=== PATIENT | male | born 1950 | race Caucasian/White ===

== ENCOUNTER → 2019-04-23 23:05 | Outpatient (CLI) | payer OTHER, MEDICARE, SELFPAY ==
[2019-04-23 16:56] VITALS: BMI 25.0
[2019-04-23 23:11] LABS: Absolute Lymphocyte Count 1.55 X10^3/uL (0.83-4.51); Absolute Neutrophil Count 3.9 X10^3/uL (2.0-7.7); Basophil# 0.09 X10^3/uL; Basophil% 1.4 % (0-1); Eosinophil# 0.19 X10^3/uL; Hematocrit 48.5 % (40-54); Hemoglobin 16.3 g/dL (13.0-16.5); Lymphocyte # 1.55 X10^3/ul (4.0); Lymphocyte % 24.4 % (19-41); Mean Corp Hgb Conc 33.6 g/dL (32-36); Mean Corpuscular Hgb 30.7 pg (27.0-32.0); Mean Corpuscular Volume 91.3 fL (80-94); Mean Platelet Vol. 10.5 fl (6.2-12.0); Monocyte# 0.58 X10^3/uL; Monocyte% 9.1 % (0-10); NRBC Flagged by Analyzer 0 % (0-5); Neutrophil # 3.93 X10^3/uL (2.7-7.7); Neutrophil % 61.9 % (47-70); Platelet Count 160 K/mm3 (150-450); RBC Distribution Width CV 12.4 % (11.6-14.6); RBC Distribution Width SD 41.5 fl (35.1-43.9); Red Blood Count 5.31 M/mm3 (4.6-6.2); White Blood Count 6.4 K/mm3 (4.4-11.0)
[2019-04-23 23:25] LABS: ALB/GLOB Ratio 1.3 RATIO (0.9-2.4); AST(SGOT) 26 U/L (15-37); Alanine Aminotransfer ALT/SGPT 32 U/L (16-61); Albumin, Serum 4.1 g/dL (3.2-5.0); Alkaline Phosphatase 61 U/L (45-117); Anion Gap 5 (5-15); BUN 15 mg/dL (7-18); BUN/Creat Ratio 13.5 RATIO (10-20); Calcium,Total 8.8 mg/dL (8.5-10.1); Chloride 106 mmol/L (98-107); Cholesterol 225 mg/dL (200); Creatinine, Serum 1.11 mg/dL (0.70-1.30); EST Glomerular Filtration Rate 70 mL/min (>60); Est Glom Filt Rate - Afr Amer 85 mL/min (>60); Globulin 3.1 g/dL (2.2-4.2); Glucose 119 mg/dL (74-106); High Density Lipoprotein 68 mg/dL; PSA,Total - Annual Screen 2.04 ng/mL (0.00-4.00); Potassium 4.7 mmol/L (3.5-5.1); Protein, Total 7.2 g/dL (6.4-8.2); Sodium Level 140 mmol/L (136-145); Triglycerides 289 mg/dL; Very Low Density Lipoprotein 58 mg/dL (5-40)
== END ==
PROVIDERS: Referring Provider Nurse Practitioner; Visit Provider Nurse Practitioner
DX: Z12.5 Encounter for screening for malignant neoplasm of prostate (principal); E78.00 Pure hypercholesterolemia, unspecified; N40.0 Benign prostatic hyperplasia without lower urinary tract symptoms
CPT/HCPCS: 80053; 80061; 84153; 85025; G0103

== ENCOUNTER → 2021-04-27 21:28 | Outpatient (CLI) | payer MEDICARE, SELFPAY ==
[2021-04-27 21:37] LABS: Absolute Lymphocyte Count 1.29 X10^3/uL (0.83-4.51); Absolute Neutrophil Count 2.2 X10^3/uL (2.0-7.7); Basophil# 0.07 X10^3/uL; Basophil% 1.7 % (0-1); Eosinophil# 0.15 X10^3/uL; Eosinophils% 3.6 % (0-5); Hematocrit 45.3 % (40-54); Hemoglobin 15.4 g/dL (13.0-16.5); Lymphocyte # 1.29 X10^3/ul (0.83-4.51); Lymphocyte % 31.4 % (19-41); Mean Corpuscular Volume 91.1 fL (80-94); Mean Platelet Vol. 10.2 fl (6.2-12.0); Monocyte# 0.42 X10^3/uL; Monocyte% 10.2 % (0-10); NRBC Flagged by Analyzer 0 % (0-5); Neutrophil # 2.17 X10^3/uL (2.7-7.7); Neutrophil % 52.9 % (47-70); Platelet Count 141 K/mm3 (150-450); RBC Distribution Width CV 12.3 % (11.6-14.6); RBC Distribution Width SD 40.7 fl (35.1-43.9); Red Blood Count 4.97 M/mm3 (4.6-6.2); White Blood Count 4.1 K/mm3 (4.4-11.0)
[2021-04-27 21:54] LABS: ALB/GLOB Ratio 1.2 RATIO (0.9-2.4); AST(SGOT) 24 U/L (15-37); Alanine Aminotransfer ALT/SGPT 25 U/L (16-61); Albumin, Serum 3.8 g/dL (3.2-5.0); Alkaline Phosphatase 59 U/L (45-117); Anion Gap 4 (5-15); BUN 15 mg/dL (7-18); BUN/Creat Ratio 14.2 RATIO (10-20); Chloride 107 mmol/L (98-107); Cholesterol 219 mg/dL (200); Creatinine, Serum 1.06 mg/dL (0.70-1.30); EST Glomerular Filtration Rate 74 mL/min (>60); Est Glom Filt Rate - Afr Amer 89 mL/min (>60); Globulin 3.2 g/dL (2.2-4.2); Glucose 89 mg/dL (74-106); High Density Lipoprotein 78 mg/dL; PSA,Total - Annual Screen 2.79 ng/mL (0.00-4.00); Potassium 3.9 mmol/L (3.5-5.1); Sodium Level 139 mmol/L (136-145); Triglycerides 81 mg/dL; Very Low Density Lipoprotein 16 mg/dL (5-40)
== END ==
PROVIDERS: PCP Nurse Practitioner; Referring Provider Nurse Practitioner; Visit Provider Nurse Practitioner
DX: E78.00 Pure hypercholesterolemia, unspecified (principal); J45.41 Moderate persistent asthma with (acute) exacerbation; N40.0 Benign prostatic hyperplasia without lower urinary tract symptoms
CPT/HCPCS: 80053; 80061; 84153; 85025; G0103

== ENCOUNTER → 2022-06-07 | Outpatient (CLI) | payer MEDICARE, SELFPAY ==
--- NOTE | 2022-06-07 08:00 | RAD_ITS ---
INDICATION: DYSPHAGIA EXAMINATION/TECHNIQUE: Barium thick and thin oral contrast , barium pill, and gas bubbles were administered to the patient. Total Fluoroscopic Time: 35 seconds AND number of Fluoroscopic Images: 11 COMPARISON: None. FINDINGS: There is a small to moderate-sized diverticulum in the midline upper esophagus that fills with contrast. There is contrast retained within the bilateral vallecula and oropharynx as patient swallows. No definitive aspiration. Normal motility. No masses or strictures are identified. There is a small hiatal hernia. There is some mucosal irregularity in the distal esophagus likely related to chronic reflux. Mild reflux. RAD/Esophagus Dual Contrast IMPRESSION: 1. Small hiatal hernia and mild reflux. 2. Some mucosal irregularity in the distal esophagus likely related to chronic reflux. 3. Small to moderate-sized Zenker''s diverticulum. 4. The patient retains contrast in the vallecula and oropharynx. A speech swallow study may be of benefit for further assessment. Electronically Signed: Lauro Sanchez, at 14:39 EST ,
== END | disposition home or self-care (01) ==
LOC: RAD 07:41
PROVIDERS: PCP Nurse Practitioner; Referring Provider Otolaryngology; Visit Provider Otolaryngology
DX: K44.9 Diaphragmatic hernia without obstruction or gangrene (principal); K22.5 Diverticulum of esophagus, acquired; R13.10 Dysphagia, unspecified
CPT/HCPCS: 74221

== ENCOUNTER → 2022-07-01 | Outpatient (CLI) | payer MEDICARE, SELFPAY | END | disposition home or self-care (01) | PROVIDERS: PCP Nurse Practitioner | DX: Z01.818 Encounter for other preprocedural examination (principal); K22.5 Diverticulum of esophagus, acquired | CPT/HCPCS: 87635; C9803; U0003; U0005 ==

== ENCOUNTER → 2023-06-04 | Outpatient (CLI) | payer MEDICARE, SELFPAY ==
--- OUTSIDE RECORDS SUMMARY | 2023-06-04 22:42 | XMS RPT_ITS | CCD ---
Author Name Unknown Address [address] [place] [id number] Organization [facility] Care Team Providers Care Hr Associate Name Role Phone Naomi Yoder Unavailable Nahomy, Dr. Ralph Higuera Attending U kassandra Yoder, Ms. Naomi Polanco Primary Care Unavailab Munguia, Dr. Ralph Higuera Attending U kassandra Yoder, Ms. Naomi Polanco Primary Care Unavailab Munguia, Dr. Ralph Higuera Attending U kassandra Yoder, Ms. Naomi Polanco Primary Care Unavailab jeb Corea, Dr. Ralph Higuera Attending U kassandra Corea, Dr. Ralph Higuera Admitting U kassandra Yoder, Ms. Naomi Polanco Primary Care Unavailab le UNKNOWN, PCP Referring Jose Yoder RETAIL SOLAR ADVISOR.Naomi GILLILAND Primary Care Provide r FIDENCIO DAVENPORT Attending Unavailable NAOMI YODER Primary Care Unavailable JESUS CHAN Attending Unavailable NAOMI YODER Primary Care Unavailable FIDENCIO DAVENPORT Attending Unavailable NAOMI YODER Primary Care Unavailable DAJUAN GARZON Attending Unavailable NAOMI YODER Primary Care Unavailable Medications Current Medications Medication Drug Class(es) Dates Sig (Normalized) Sig (Original) cephalexin 500 mg oral capsule (2 sources) Cephalosporin Antibacterial Start: 08-18-2022 End: 08-25-2022 take 1 capsule by mouth four times daily cephALEXin (KEFLEX) 500 mg capsule Take 1 capsule by mouth four times daily for 7 days. 28 capsule 0 08/18/2022 08/25/2022 Active Completed/Discontinued Medications Medication Drug Class(es) Dates Sig (Normalized) Sig (Original) Albuterol (4 sources) beta2-Adrenergic Agonist ALBUTER OL SULFATE (PROAIR HFA INHALATION) Inhale as instructed. 0 Active Problems Active Problems Problem Classification Problem Date Documented Da te Episodic/Chronic Asthma (5 sources) Unspecified asthma, uncomplicated; Translations: [Mild intermittent asthma] Onset: 09-29-2015 09-29-2015 Chronic Disorders of lipid metabolism (4 sources) Hyperlipidemia; Translations: [Hyperlipidemia, unspecified] Onset: 09-29-2015 09-29-2015 Chronic E Codes: Machinery (4 sources) Injury due to machinery; Translations: [Contact with powered [employer] and forming machines, initial encounter] Onset: 09-23-2022 Episodic Esophageal disorders (1 source) Gastro-esophageal reflux disease without esophagitis; Translations: [Gastro-esophageal reflux disease without esophagitis] Onset: 07-03-2022 Chronic Esophageal disorders (6 sources) Zenker's diverticulum; Translations: [Diverticulum of esophagus, acquired] Onset: 07-02-2022 Episodic Essential hypertension (4 sources) Hypertensive disorder; Translations: [Essential (primary) hypertension] Onset: 09-29-2015 09-29-2015 Chronic Hyperplasia of prostate (1 source) Benign prostatic hyperplasia without lower urinary tract symptoms; Translations: [Benign prostatic hyperplasia without lower urinry tract symp] Onset: 07-03-2022 Chronic Open wounds of extremities (5 sources) Laceration of left thumb; Translations: [Laceration without foreign body of left thumb with damage to nail, initial encounter] Onset: 08-21-2022 Episodic Osteoarthritis (1 source) Unspecified osteoarthritis, unspecified site; Translations: [Unspecified osteoarthritis, unspecified site] Onset: 06-25-2022 Chronic Other aftercare (1 source) 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; Translations: [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] Onset: 06-25-2022 Episodic Other diseases of bladder and urethra (4 sources) Spasm of bladder; Translations: [Other specified disorders of bladder] Onset: 09-29-2015 09-29-2015 Chronic Other gastrointestinal disorders (1 source) Dysphagia, unspecified; Translations: [Dysphagia, unspecified] Onset: 07-03-2022 Episodic Other hereditary and degenerative nervous system conditions (1 source) Restless legs syndrome; Translations: [Restless legs syndrome] Onset: 07-03-2022 Chronic Other hereditary and degenerative nervous system conditions (4 sources) Restless legs; Translations: [Restless legs syndrome] Onset: 09-29-2015 09-29-2015 Chronic Residual codes; unclassified (1 source) Obstructive sleep apnea (adult) (pediatric); Translations: [Obstructive sleep apnea (adult) (pediatric)] Onset: 07-03-2022 Chronic Residual codes; unclassified (4 sources) Obstructive sleep apnea syndrome; Translations: [Obstructive sleep apnea (adult) (pediatric)] Onset: 09-29-2015 09-29-2015 Chronic Screening and history of mental health and substance abuse codes (1 source) Personal history of nicotine dependence; Translations: [Personal history of nicotine dependence] Onset: 07-03-2022 Episodic Past or Other Problems Problem Classification Problem Date Documented Da te Episodic/Chronic Anal and rectal conditions (4 sources) Rectal mass; Translations: [Other specified diseases of anus and rectum] Onset: 12-03-2014 12-03-2014 Episodic Gastrointestinal hemorrhage (4 sources) Rectal hemorrhage; Translations: [Hemorrhage of anus and rectum] Onset: 12-03-2014 12-03-2014 Episodic Results Test Name Value Interpretation Reference Range Facil ity Vital Signs Date Time Vital Sign Value Performing Clinician Dede abdul 09-23-2022 08:16-0400 Body height 179.1 cm Fidencio Mikulski PA-C Work Phone: [facility] 09-23-2022 08:16-0400 Body weight 72.58 kg Fidencio Mikulski PA-C Work Phone: [facility] 09-23-2022 08:16-0400 Respiratory rate 20 /min Fidencio Mikulski PA-C Work Phone: [facility] 09-04-2022 08:14-0400 Body height 177.8 cm Fidencio Solarmassulski PA-C Work Phone: [facility] 09-04-2022 08:14-0400 Body weight 74.84 kg Fidencio Mikulski PA-C Work Phone: [facility] 09-04-2022 08:14-0400 Respiratory rate 16 /min Fidencio Mikulski PA-C Work Phone: [facility] 08-21-2022 09:19-0400 Body height 177.8 cm Jesus Chan MD Work Phone: [facility] 08-21-2022 09:19-0400 Body weight 75.66 kg Jesus Chan MD Work Phone: [facility] 07-22-2022 12:04-0500 Body height 179.07 cm Naomi Yoder Work Phone: [facility] Work Phone: 07-22-2022 12:04-0500 Body mass index (BMI) [Ratio] 23.12 kg/m2 Naomi Yoder Work Phone: [facility] Work Phone: 07-22-2022 12:04-0500 Body surface area Derived from formula 1.93 m2 Naomi Yoder Work Phone: [facility] Work Phone: 07-22-2022 12:04-0500 Body temperature 97.7 [degF] Naomi Yoder Work Phone: [facility] Work Phone: 07-22-2022 12:04-0500 Body weight 74.14 kg Naomi Yoder Work Phone: [facility] Work Phone: 06-17-2022 10:41-0500 Body weight 75.3 kg Naomi Yoder Work Phone: [facility] Work Phone: Encounters Encounter Date Encounter Type Care Provider Facility Start: 09-23-2022 End: 09-23-2022 ambulatory FIDENCIO DAVENPORT Facility:[facility] Start: 09-23-2022 End: 09-23-2022 Patient encounter procedure Fidencio Davenport PA-C Work Phone: [facility] Procedures Date Procedure Procedure Detail Performing Clinician Start: 06-25-[address] The odoros Corea Plan of Treatment Date Care Activity Detail Author Start: 08-17-2032 Urine microalbumin profile DTA P,TDAP,TD (2 - Td or Tdap) [facility] Start: 06-25-2025 DIABETES SCREEN DIABETES SCREEN [facility] Start: 06-09-2022 ADVANCE DIRECTIVE DISCUSSION ADVANCE DIRECTIVE DISCUSSION [facility] Start: 06-09-2022 DEPRESSION ASSESSMENT DEPRESSION ASS ESSMENT [facility] Start: 09-28-2018 DIABETES SCREEN DIABETES SCREEN [facility] Start: 05-17-2017 COLORECTAL CANCER SCREENING COLORECTAL CANCER SCREENING [facility] Start: 05-17-2017 FECAL OCCULT BLOOD FECAL OCCULT BLOO D [facility] Start: 11-15-2009 LIPID SCREEN LIPID SCREEN [facility] Start: 09-01-2001 SHINGRIX VACCINE (1 of 2) SHINGRIX V ACCINE (1 of 2) [facility] Start: 09-01-1996 COLOGUARD (FIT-DNA) COLOGUARD (FIT-D NA) [facility] Start: 09-01-1996 Colonoscopy COLONOSCOPY [facility] Start: 09-01-[address] COLONOGRAPHY [facility] Start: 09-01-1996 SIGMOIDOSCOPY SIGMOIDOSCOPY [facility] Start: 09-01-1969 ANNUAL PCP TEAM JOINER ZENA DISEASE VISIT ANNUAL PCP TEAM CHRONIC DISEASE VISIT [facility] Start: 09-01-1969 BP CONTROLLED (<130/80) BP CONTROLLE D (<130/80) [facility] Start: 09-01-1969 SPIROMETRY SPIROMETRY [facility] Start: 09-01-1957 PNEUMOCOCCAL: 65+ (1 - PCV) PNEUMOCOCCAL: 65+ (1 - PCV) [facility] Start: 1950 ABDOMINAL AORTIC ANE URYSM SCREENING ABDOMINAL AORTIC ANEURYSM SCREENING [facility] Immunizations Immunization Date Immunization Notes Care Provider Fa rosario 08-17-2022 tetanus toxoid, redu mely diphtheria toxoid, and acellular pertussis vaccine, adsorbed Jesus Chan MD Work Phone: [facility] Payers Date Payer Category Payer Medicare [employer] MEDICARE A ETNA MEDICARE PPO [id number] 2021-Present [phone] [address] [place] [address] PPO [id number] 2021 Private Health Insurance [id number] 1950 Unknown [id number] 1950 Unknown [id number] 1950 Unknown [id number] 1950 Unknown [id number] Unknown [employer] Social History Date Type Detail Facility Start: 08-17-2022 [facility] End: 09-28-2000 History of tobacco use Current smoker [facility] End: 09-28-2000 History of tobacco use Cigarette Smoker [facility] Start: 08-17-2022 Cigarettes smoked cu rrent (pack per day) - Reported 1 [facility] Start: 08-17-2022 Tobacco use and exposure Smoke less tobacco non-user [facility] Start: 08-17-2022 End: 09-23-2022 Alcohol intake Current non-drinker of alcohol (finding) [facility] Start: 1950 Sex Assigned At Not on file C [facility] Clinical Notes 12-15-2021 to 09-23-2022 Fidencio Davenport PA-C - 09/23/2022 8:33 AM Sonal Davenport PA-C - 09/04/2022 8:40 AM Cristal Chan MD - 08/21/2022 9:33 AM EDTTelephone Encounter - Leila Rodriguez - 08/20/2022 11:14 AM EDT Note Date & Type Note Facility 09-23-2022 Note HNO ID: [id number] Author: Fidencio Davenport PA-C Service: ? Author Type: Physician Laborer Yard Type: Progress Notes Filed: 09/23/2022 3:22 PM Note Text: ORTHOPAEDIC OFFICE NOTE CHIEF COMPLAINT: Established Patient and Pain of the Left Thumb Patient presents with: Left Thumb - Established Patient, Pain HISTORY OF PRESENT ILLNESS: Valentin Ackerman presents to the office for follow up of left thumb tablesaw injury. Patient states he is doing well today. He denies having much pain at this time. He states pain is only present when he tries to apply pressure to the pulp of his thumb. States he had skin peel off quite a bit as it continued to heal these past few weeks. Admits he recently stopped doing daily dressing changes about 1 week ago ongoing without any coverage due to having this scabbed over. No other complaints. Location: Left thumb Severity: 3 on a scale of 0-10 Duration of symptoms: 5 weeks Date of injury: 08/18/22 Symptoms have: Improved Previous treatment: Antibiotics, laceration repair, dressing changes Numbness/tingling: Yes, to the distal radial aspect of thumb distal phalanx tip Nocturnal symptoms: No Radiating: No Injections: No Therapy: No Context worse with Activity/Motion and Gripping Smoking status: Tobacco Use: 1 packs/day, for 30 years. Quit 09/28/2000. Types: Cigarettes Reviewed nursing note and current pain scale. PAIN EVALUATION 09/23/2022 0815 Pain Level: 3 Pain Location: -- left thumb Description: Sore Frequency: Intermittent PAST MEDICAL HISTORY Past medical, surgical, family, and social histories have been reviewed and updated with the patient today and are located elsewhere in the medical record. Diabetes:No ALLERGIES ALLERGIES No Known Allergies PHYSICAL EXAMINATION Resp 20 Ht 179.1 cm (5' 10.5 ) Wt 72.6 kg (160 lb) BMI 22.63 kg/m? Body mass index is 22.63 kg/m?. General Appearance: Well appearing, alert, in no acute distress, well-hydrated, well nourished. Psyche: he is alert and oriented and cooperative to our examination. Neuro: he alert and oriented times: 3. Normal affect times: 3. Gait and station: normal. Pulmonary: he has non labored breathing. There is no evidence of cyanosis. There is no clubbing of fingernails. he has no pursed lips. Head: Normocephalic and atraumatic Neck: Supple with no JVD Lymph: There is no palpable epitrochlear Musculoskeletal- Left Hand/Wrist/Upper Extremity Exam: Skin: There is no swelling or ecchymosis. There is a small, healing wound noted to the volar aspect of left thumb distal phalanx with evidence of eschar formation. This is healing well by secondary intention. No cellulitis/streaking, erythema, active bleeding, or purulent wounds. Cardiovascular: <3 sec capillary refill, +2 radial pulse palpated. Tenderness to palpation: Minimal tenderness noted to the distal aspect of left thumb fingertip pulp/distal phalanx ROM: Full active range of motion of left thumb. He fires flexor and extensor tendons of left thumb. Instability: none Sensation: Normal sensation Thenar atrophy: None Atrophy: None REVIEW OF STUDIES: No new imaging obtained at today's visit. ASSESSMENT AND PLAN: 1. Laceration of left thumb without foreign body with damage to nail, subsequent encounter - ICD9: V58.89, 883.0, ICD10: S61.112D (primary diagnosis) 2. Contact with powered saw as cause of accidental injury - ICD9: E920.1, ICD10: W31.2XXA Patient educated on clinical and exam findings, suspected diagnosis, and treatment options. -Patient is doing very well today. I am pleased with his healing progress. -He has a small wound with eschar formation noted to the volar aspect of his left thumb distal phalanx that appears to be healing very well. This will continue to heal well via secondary intention. -Continue to keep wound site clean and dry Follow up as needed - Patient instructed to call office with questions or concerns. This note was generated via [email or web address] voice dictation and may contain errors related to that system such as spelling, grammar, punctuation, gender, words, and phrases that may be inappropriate. All reasonable efforts were made to correct dictation errors, however, they still may occur given the software used. YINA Jensen, EDDIEC [facility] 09-23-2022 History of Present illness Narrative Images from the original note were not included. ORTHOPAEDIC OFFICE NOTE CHIEF COMPLAINT: Established Patient and Pain of the Left Thumb Patient presents with: Left Thumb - Established Patient, Pain HISTORY OF PRESENT ILLNESS: Valentin Ackreman presents to the office for follow up of left thumb tablesaw injury. Patient states he is doing well today. He denies having much pain at this time. He states pain is only present when he tries to apply pressure to the pulp of his thumb. States he had skin peel off quite a bit as it continued to heal these past few weeks. Admits he recently stopped doing daily dressing changes about 1 week ago ongoing without any coverage due to having this scabbed over. No other complaints. Location: Left thumb Severity: 3 on a scale of 0-10 Duration of symptoms: 5 weeks Date of injury: 08/18/22 Symptoms have: Improved Previous treatment: Antibiotics, laceration repair, dressing changes Numbness/tingling: Yes, to the distal radial aspect of thumb distal phalanx tip Nocturnal symptoms: No Radiating: No Injections: No Therapy: No Context worse with Activity/Motion and Gripping Smoking status: Tobacco Use: 1 packs/day, for 30 years. Quit 09/28/2000. Types: Cigarettes Reviewed nursing note and current pain scale. PAIN EVALUATION 09/23/2022 0815 Pain Level: 3 Pain Location: -- left thumb Description: Sore Frequency: Intermittent PAST MEDICAL HISTORY Past medical, surgical, family, and social histories have been reviewed and updated with the patient today and are located elsewhere in the medical record. Diabetes:No ALLERGIES ALLERGIES No Known Allergies PHYSICAL EXAMINATION Resp 20 Ht 179.1 cm (5' 10.5 ) Wt 72.6 kg (160 lb) BMI 22.63 kg/m Body mass index is 22.63 kg/m . General Appearance: Well appearing, alert, in no acute distress, well-hydrated, well nourished. Psyche: he is alert and oriented and cooperative to our examination. Neuro: he alert and oriented times: 3. Normal affect times: 3. Gait and station: normal. Pulmonary: he has non labored breathing. There is no evidence of cyanosis. There is no clubbing of fingernails. he has no pursed lips. Head: Normocephalic and atraumatic Neck: Supple with no JVD Lymph: There is no palpable epitrochlear Musculoskeletal- Left Hand/Wrist/Upper Extremity Exam: Skin: There is no swelling or ecchymosis. There is a small, healing wound noted to the volar aspect of left thumb distal phalanx with evidence of eschar formation. This is healing well by secondary intention. No cellulitis/streaking, erythema, active bleeding, or purulent wounds. Cardiovascular: <3 sec capillary refill, +2 radial pulse palpated. Tenderness to palpation: Minimal tenderness noted to the distal aspect of left thumb fingertip pulp/distal phalanx ROM: Full active range of motion of left thumb. He fires flexor and extensor tendons of left thumb. Instability: none Sensation: Normal sensation Thenar atrophy: None Atrophy: None REVIEW OF STUDIES: No new imaging obtained at today's visit. ASSESSMENT AND PLAN: 1. Laceration of left thumb without foreign body with damage to nail, subsequent encounter - ICD9: V58.89, 883.0, ICD10: S61.112D (primary diagnosis) 2. Contact with powered saw as cause of accidental injury - ICD9: E920.1, ICD10: W31.2XXA Patient educated on clinical and exam findings, suspected diagnosis, and treatment options. -Patient is doing very well today. I am pleased with his healing progress. -He has a small wound with eschar formation noted to the volar aspect of his left thumb distal phalanx that appears to be healing very well. This will continue to heal well via secondary intention. -Continue to keep wound site clean and dry Follow up as needed - Patient instructed to call office with questions or concerns. This note was generated via [email or web address] voice dictation and may contain errors related to that system such as spelling, grammar, punctuation, gender, words, and phrases that may be inappropriate. All reasonable efforts were made to correct dictation errors, however, they still may occur given the software used. YINA Jensen PA-C [facility] documented in this encounter [facility] 09-04-2022 Note HNO ID: [id number] Author: Fidencio Davenport PA-C Service: ? Author Type: Physician Laborer Yard Type: Progress Notes Filed: 09/04/2022 9:01 AM Note Text: ORTHOPAEDIC OFFICE NOTE CHIEF COMPLAINT: Established Patient, Follow Up, Wound Check, and Pain of the Left Thumb Patient presents with: Left Thumb - Established Patient, Follow Up, Wound Check, Pain HISTORY OF PRESENT ILLNESS: Valentin Ackerman presents to the office for follow up of left thumb tablesaw injury. Patient states he is doing well today. States he has minimal pain at this time. Pain is only present when he bumps it a certain way. Admits to finishing out antibiotics without issues. He has been performing daily dressing changes as instructed. No other complaints. Location: Left thumb Severity: 3 on a scale of 0-10 Duration of symptoms: 2.5 weeks Date of injury: 08/18/2022 Symptoms have: Improved Previous treatment: Antibiotics, laceration repair Numbness/tingling: No Context worse with Activity/Motion Occupation: Retired Smoking status: Tobacco Use: 1 packs/day, for 30 years. Quit 09/28/2000. Types: Cigarettes Reviewed nursing note and current pain scale. PAIN EVALUATION 09/04/2022 0813 Pain Level: 3 Pain Location: -- Left thumb Description: Aching Frequency: Intermittent Intervention/Comfort measure: Relaxation;Reposition denies use of pain relievers for thumb PAST MEDICAL HISTORY Past medical, surgical, family, and social histories have been reviewed and updated with the patient today and are located elsewhere in the medical record. Diabetes:No ALLERGIES ALLERGIES No Known Allergies PHYSICAL EXAMINATION Resp 16 Ht 177.8 cm (5' 10 ) Wt 74.8 kg (165 lb) BMI 23.68 kg/m? Body mass index is 23.68 kg/m?. General Appearance: Well appearing, alert, in no acute distress, well-hydrated, well nourished. Psyche: he is alert and oriented and cooperative to our examination. Neuro: he alert and oriented times: 3. Normal affect times: 3. Gait and station: normal. Pulmonary: he has non labored breathing. There is no evidence of cyanosis. There is no clubbing of fingernails. he has no pursed lips. Head: Normocephalic and atraumatic Neck: Supple with no JVD Lymph: There is no palpable epitrochlear Musculoskeletal- Left Hand/Wrist/Upper Extremity Exam: Skin: There is no swelling or ecchymosis. There is a healing, traumatic wound involving the radial aspect of left thumb and nail plate that crosses obliquely within the pulp. This appears to be healing well by secondary intention. No erythema, cellulitis/streaking, or purulent drainage. Nylon sutures in place. Cardiovascular: <3 sec capillary refill, +2 radial pulse palpated. Tenderness to palpation: Mild tenderness on palpation of left thumb distal phalanx/fingertip pulp ROM: Slightly decreased active range of motion of left thumb IP joint due to stiffness. He does fire flexor and extensor tendons of left thumb. Instability: none Sensation: Normal sensation Thenar atrophy: None Atrophy: None REVIEW OF STUDIES: No new imaging obtained at today's visit. ASSESSMENT AND PLAN: 1. Laceration of left thumb without foreign body with damage to nail, initial encounter - ICD9: 883.0, ICD10: S61.112A (primary diagnosis) 2. Contact with powered saw as cause of accidental injury - ICD9: E920.1, ICD10: W31.2XXA Patient educated on clinical and exam findings, suspected diagnosis, and treatment options. -Patient is doing well today. I am pleased with his healing progress. We discussed how he will continue to heal well via secondary intention. -Sutures removed in office today without difficulty. Patient tolerated this well. -We discussed appropriate wound care and daily dressing changes. Patient was sent home with supplies. If patient is resting and not using his left hand, he was instructed to leave his thumb open to air in order to dry out and scab over. -Instructed patient to continue working on range of motion of fingers. -Ice and elevate as needed -NSAIDs/Tylenol as needed Follow up in 3 to 4 weeks for what I anticipate will be his final wound check - Patient instructed to call office with questions or concerns. This note was generated via [email or web address] voice dictation and may contain errors related to that system such as spelling, grammar, punctuation, gender, words, and phrases that may be inappropriate. All reasonable efforts were made to correct dictation errors, however, they still may occur given the software used. YINA Jensen, PAGwynC [facility] 09-04-2022 History of Present illness Narrative Images from the original note were not included. ORTHOPAEDIC OFFICE NOTE CHIEF COMPLAINT: Established Patient, Follow Up, Wound Check, and Pain of the Left Thumb Patient presents with: Left Thumb - Established Patient, Follow Up, Wound Check, Pain HISTORY OF PRESENT ILLNESS: Valentin Ackerman presents to the office for follow up of left thumb tablesaw injury. Patient states he is doing well today. States he has minimal pain at this time. Pain is only present when he bumps it a certain way. Admits to finishing out antibiotics without issues. He has been performing daily dressing changes as instructed. No other complaints. Location: Left thumb Severity: 3 on a scale of 0-10 Duration of symptoms: 2.5 weeks Date of injury: 08/18/2022 Symptoms have: Improved Previous treatment: Antibiotics, laceration repair Numbness/tingling: No Context worse with Activity/Motion Occupation: Retired Smoking status: Tobacco Use: 1 packs/day, for 30 years. Quit 09/28/2000. Types: Cigarettes Reviewed nursing note and current pain scale. PAIN EVALUATION 09/04/2022 0813 Pain Level: 3 Pain Location: -- Left thumb Description: Aching Frequency: Intermittent Intervention/Comfort measure: Relaxation;Reposition denies use of pain relievers for thumb PAST MEDICAL HISTORY Past medical, surgical, family, and social histories have been reviewed and updated with the patient today and are located elsewhere in the medical record. Diabetes:No ALLERGIES ALLERGIES No Known Allergies PHYSICAL EXAMINATION Resp 16 Ht 177.8 cm (5' 10 ) Wt 74.8 kg (165 lb) BMI 23.68 kg/m Body mass index is 23.68 kg/m . General Appearance: Well appearing, alert, in no acute distress, well-hydrated, well nourished. Psyche: he is alert and oriented and cooperative to our examination. Neuro: he alert and oriented times: 3. Normal affect times: 3. Gait and station: normal. Pulmonary: he has non labored breathing. There is no evidence of cyanosis. There is no clubbing of fingernails. he has no pursed lips. Head: Normocephalic and atraumatic Neck: Supple with no JVD Lymph: There is no palpable epitrochlear Musculoskeletal- Left Hand/Wrist/Upper Extremity Exam: Skin: There is no swelling or ecchymosis. There is a healing, traumatic wound involving the radial aspect of left thumb and nail plate that crosses obliquely within the pulp. This appears to be healing well by secondary intention. No erythema, cellulitis/streaking, or purulent drainage. Nylon sutures in place. Cardiovascular: <3 sec capillary refill, +2 radial pulse palpated. Tenderness to palpation: Mild tenderness on palpation of left thumb distal phalanx/fingertip pulp ROM: Slightly decreased active range of motion of left thumb IP joint due to stiffness. He does fire flexor and extensor tendons of left thumb. Instability: none Sensation: Normal sensation Thenar atrophy: None Atrophy: None REVIEW OF STUDIES: No new imaging obtained at today's visit. ASSESSMENT AND PLAN: 1. Laceration of left thumb without foreign body with damage to nail, initial encounter - ICD9: 883.0, ICD10: S61.112A (primary diagnosis) 2. Contact with powered saw as cause of accidental injury - ICD9: E920.1, ICD10: W31.2XXA Patient educated on clinical and exam findings, suspected diagnosis, and treatment options. -Patient is doing well today. I am pleased with his healing progress. We discussed how he will continue to heal well via secondary intention. -Sutures removed in office today without difficulty. Patient tolerated this well. -We discussed appropriate wound care and daily dressing changes. Patient was sent home with supplies. If patient is resting and not using his left hand, he was instructed to leave his thumb open to air in order to dry out and scab over. -Instructed patient to continue working on range of motion of fingers. -Ice and elevate as needed -NSAIDs/Tylenol as needed Follow up in 3 to 4 weeks for what I anticipate will be his final wound check - Patient instructed to call office with questions or concerns. This note was generated via [email or web address] voice dictation and may contain errors related to that system such as spelling, grammar, punctuation, gender, words, and phrases that may be inappropriate. All reasonable efforts were made to correct dictation errors, however, they still may occur given the software used. YINA Jensen PA-C [facility] documented in this encounter [facility] 08-21-2022 Note HNO ID: [id number] Author: Jesus Chan MD Service: ? Author Type: Physician Type: Progress Notes Filed: 08/21/2022 10:10 AM Note Text: Patient presents with: Left Thumb - New, Pain: laceration HISTORY OF PRESENT ILLNESS Valentin Ackerman is a 71 year old male right hand dominant who presents for evaluation of a tablesaw injury to the left thumb. The patient sustained the injury on 08/18/2022. He was seen at [facility] and the wound was irrigated, closed loosely, and he has been on oral antibiotics and has been tolerating these well. He is not having any significant pain at this point. No other particular concerns on today's visit. Location: Left thumb Severity: 2 on a scale of 0-10 Duration of symptoms: 3 days Date of injury 08/18/2022 Symptoms have Improved Previous treatment: See above Context worse with Activity/Motion Occupation: Retired Smoking status: Tobacco Use: 1 packs/day, for 30 years. Quit 09/28/2000. Types: Cigarettes REVIEW OF SYSTEMS Cardiovascular ROS:No history of chest pain, palpitation, orthopnea, cyanosis, pedal edema Neurologic ROS: Numbness and Tingling:No PAST MEDICAL HISTORY Past medical, surgical, family, and social histories have been reviewed and updated with the patient today and are located elsewhere in the medical record. Diabetes:No ALLERGIES ALLERGIES No Known Allergies PHYSICAL EXAMINATION Ht 177.8 cm (5' 10 ) BMI 24.26 kg/m? Body mass index is 24.26 kg/m?. General Appearance Well appearing, alert, in no acute distress, well-hydrated, well nourished. Alert and oriented times: 3 Normal affect times: 3 Appears stated age and well nourished Gait and station:normal Left Upper Extremity Exam: Inspection of the left thumb shows a traumatic injury involving the radial aspect of the nail plate and progressing obliquely within the pulp There is some partial soft tissue loss within the pulp but there is healthy granulation tissue present The wound is nicely approximated with nylon sutures Skin: WNL Tenderness to palpation: Mild tenderness at the pulp in line with expectations ROM: Intact thumb IP joint flexion and extension Instability: none Sensation:Normal sensation along the ulnar aspect of the thumb There is some patchy numbness distal to the traumatic wound as would be expected Atrophy: None Brisk capillary refill Special tests: n/a REVIEW OF STUDIES No new imaging obtained ASSESSMENT AND PLAN ASSESSMENT/PLAN: 1. Contact with powered saw as cause of accidental injury - ICD9: E920.1, ICD10: W31.2XXA (primary diagnosis) 2. Laceration of left thumb without foreign body with damage to nail, initial encounter - ICD9: 883.0, ICD10: S61.112A I discussed the injury with the patient. He has had excellent local wound care up to this point and I would not advocate for any additional procedural treatment. I counseled him that the open wound will granulate in over time and heal via secondary intention. He is going to continue the oral antibiotics until completion and we discussed wound care and daily dressing change. He was provided with wound supplies. We will plan on following up in 2 weeks for wound check, suture removal. All of his questions were answered to his satisfaction Jesus Chan MD Patient educated on wound care. Patient instructed to call the office with questions or concerns. [facility] 08-21-2022 History of Present illness Narrative Patient presents with: Left Thumb - New, Pain: laceration HISTORY OF PRESENT ILLNESS Valentin Ackerman is a 71 year old male right hand dominant who presents for evaluation of a tablesaw injury to the left thumb. The patient sustained the injury on 08/18/2022. He was seen at [facility] and the wound was irrigated, closed loosely, and he has been on oral antibiotics and has been tolerating these well. He is not having any significant pain at this point. No other particular concerns on today's visit. Location: Left thumb Severity: 2 on a scale of 0-10 Duration of symptoms: 3 days Date of injury 08/18/2022 Symptoms have Improved Previous treatment: See above Context worse with Activity/Motion Occupation: Retired Smoking status: Tobacco Use: 1 packs/day, for 30 years. Quit 09/28/2000. Types: Cigarettes REVIEW OF SYSTEMS Cardiovascular ROS:No history of chest pain, palpitation, orthopnea, cyanosis, pedal edema Neurologic ROS: Numbness and Tingling:No PAST MEDICAL HISTORY Past medical, surgical, family, and social histories have been reviewed and updated with the patient today and are located elsewhere in the medical record. Diabetes:No ALLERGIES ALLERGIES No Known Allergies PHYSICAL EXAMINATION Ht 177.8 cm (5' 10 ) BMI 24.26 kg/m Body mass index is 24.26 kg/m . General Appearance Well appearing, alert, in no acute distress, well-hydrated, well nourished. Alert and oriented times: 3 Normal affect times: 3 Appears stated age and well nourished Gait and station:normal Left Upper Extremity Exam: Inspection of the left thumb shows a traumatic injury involving the radial aspect of the nail plate and progressing obliquely within the pulp There is some partial soft tissue loss within the pulp but there is healthy granulation tissue present The wound is nicely approximated with nylon sutures Skin: WNL Tenderness to palpation: Mild tenderness at the pulp in line with expectations ROM: Intact thumb IP joint flexion and extension Instability: none Sensation:Normal sensation along the ulnar aspect of the thumb There is some patchy numbness distal to the traumatic wound as would be expected Atrophy: None Brisk capillary refill Special tests: n/a REVIEW OF STUDIES No new imaging obtained ASSESSMENT AND PLAN ASSESSMENT/PLAN: 1. Contact with powered saw as cause of accidental injury - ICD9: E920.1, ICD10: W31.2XXA (primary diagnosis) 2. Laceration of left thumb without foreign body with damage to nail, initial encounter - ICD9: 883.0, ICD10: S61.112A I discussed the injury with the patient. He has had excellent local wound care up to this point and I would not advocate for any additional procedural treatment. I counseled him that the open wound will granulate in over time and heal via secondary intention. He is going to continue the oral antibiotics until completion and we discussed wound care and daily dressing change. He was provided with wound supplies. We will plan on following up in 2 weeks for wound check, suture removal. All of his questions were answered to his satisfaction Jesus Chan MD Patient educated on wound care. Patient instructed to call the office with questions or concerns. documented in this encounter [facility] 08-20-2022 Miscellaneous Notes ----- Message from Cuca Gil sent at 08/19/2022 3:33 PM EDT ----- Regarding: Orthopedics / [Er Follow uu-[id number]-[id number] Subject Line Format: Patient has been identified by name and Date of (Y/N): y Patient: Valentin Ackerman Date of : 1950 Previous Provider Seen: n/a-referred jane Body Part(s) Identified: thumb L Diagnosis/Reason For Visit: er follow up-laceration Reason for the call/escalation: er follow up- next available bath or pob If reason for call/escalation is discharge from ED/ER or Hospital, which facility was the patient seen at: [place] Was an appointment scheduled (Y/N): n/a Person calling if other than patient: n/a Return call to if other than patient: n/a Best contact number: [phone] Thank you, Cuca Gil August 19, 2022 3:33 PM documented in this encounter [facility] 07-03-2022 Note Send Summary: Discharge Summary Providers: Provider RoleProvider Name ReferringLexii Lange AttendingRalph Corea Dora L Note Recipients: Naomi Yoder, [facility] - [phone] [] Ralph Corea MD Unknown, PcpMD Discharge: Summary: Admission Date: .02-Jul-2022 07:57:00 Discharge Date: 03-Jul-2022 Attending Physician at Discharge: Ralph Corea Admission Reason: Zenker diverticulum, Dysphagia Final Discharge Diagnoses: Zenker diverticulum Procedures: Date: 02-Jul-2022 10:49:00 Procedure Name: 1. Direct laryngoscopy 2. Transoral endoscopic repair of Zenker diverticulum Condition at Discharge: Satisfactory Disposition at Discharge: .Home Vital Signs: T PRBPMAPSpO2 [id number]% Date/Time07/03 9: 9: 9: 9: 9:44 Range(35.9C - 37C ) (70 - 73 ) (16 - 18 ) (112 - 152 )/ (55 - 74 ) (93% - 95% ) Highest temp of 37 C was recorded at 07/03 9:44 Date: Weight/Scale Type:Height: 02-Jul-2022 16:3776 kg / acbvwwrt216.8 cm Physical Exam: Vitals reviewed General: Alert, oriented, no acute distress Resp: Breathing comfortably on room air, no stridor Head: Atraumatic, normocephalic Oral Cavity: MMM, Ears: External ears normal Nose: External exam within normal limits, no active bleeding Neck: soft, supple, trachea midline Hospital Course: 71 year old male s/p Zenker diverticulectomy endoscopic repair on 07/02/22. Transferred to PACU post-operatively for monitoring, then to regular nursing floor. Post-op course was uncomplicated. Diet was advanced as tolerated. IV medication transitioned to oral as diet advanced. On the day of discharge, the pt was tolerating a diet, pain was controlled on PO pain medication, and ambulating and voiding spontaneously. They were discharged home in stable condition and will follow up as an outpatient. Active Issues: Dysphagia Zenker's Diverticulum Total time spent today was 35 minutes, more than half of my time was spent coordinating patients discharge. Discharge Information: and Continuing Care: Lab Results - Pending: None Radiology Results - Pending: None Discharge Instructions: Activity: activity as tolerated. May shower.. May not drive while taking narcotics. No pushing, pulling, or lifting objects greater than 10 pounds. Weight-bearing Instructions: full weight bearing. Nutrition/Diet: special diet, Clear liquids for 3 days, then full liquids for 3 days, then soft diet until you follow up with Dr. Corea Infectious Disease: PPD Status: not given MRSA: no VRE: no C. Diff: no Other Resistant Organism: no Isolation Type: none Follow Up Appointments: Follow-Up Appointment 01: Physician/Dept/Service: 07/22/2022 at 11:45 AM at the [facility] location with Dr. Corea Discharge Medications: Home Medication oxyCODONE 5 mg/5 mL oral solution - 5 milliliter(s) orally every 4 hours -.Meds to Beds as needed for pain, G89.18 Colace 100 mg oral capsule - 1 cap(s) orally 2 times a day, while taking pain medication doxazosin 8 mg oral tablet - 1 tab(s) oral once a day omeprazole 40 mg oral delayed release capsule - 1 tab(s) oral once a day PRN Medication carbidopa-levodopa 25 mg-100 mg oral tablet - 1 tab(s) orally once a day, As Needed for restless legs fluticasone nasal 50 mcg/inh nasal spray - 1 spray(s) in each nostril once a day, As Needed Albuterol (Eqv-Proventil HFA) 90 mcg/inh inhalation aerosol - 2 puff(s) inhaled every 6 hours, As Needed DNR Status: Code StatusCode Status order at time of discharge: Full Code Attestation: Note Completion: Provider/Team Pager #[phone] Electronic Signatures: Matilda White (RETAIL SOLAR ADVISOR-RUBBER TIRE AND TUBES SUPERVISOR) (Signed 03-Jul-2022 10:54) Authored: Send Summary, Summary Content, Ongoing Care, DNR Status, Note Completion Last Updated: 03-Jul-2022 10:54 by Matilda White (RETAIL SOLAR ADVISOR-RUBBER TIRE AND TUBES SUPERVISOR) [facility] 07-02-2022 Note PROCEDURE DETAILS Preoperative Diagnosis: Zenker diverticulum, dysphagia Postoperative Diagnosis: Zenker diverticulum, dysphagia Surgeon: Ralph Corea MD Resident/Fellow/Other Laborer Yard: Wilmar Hoang Procedure: 1. Direct laryngoscopy 2. Transoral endoscopic repair of Zenker diverticulum Anesthesia: GET Estimated Blood Loss: <3 cc Blood Replaced: None Findings: successful endoscopic repair of moderate sized Zenker diverticulum Specimens(s) Collected: no, Complications: No immediate intraoperative complications Drains and/or Catheters: None Implants: None Patient Returned To/Condition: PACU/stable Operative Report: Indications: 71 year old male with progressive dysphagia. Underwent barium swallow study which demonstrated a Zenker diverticulum. Given this, elected to proceed with above listed procedure after discussion of risks, benefits, and alternatives. Written informed consent was obtained. Procedure: The patient was met in the preoperative holding area. Written informed consent was reviewed at that time. He was brought back to the operating room by the anesthesia team and transferred in the supine position to the operating room table. General anesthesia induced and standard orotracheal intubation was performed with laser safe endotracheal tube. He was turned toward the ENT team. Timeout was performed with all team members present. Laser safety timeout was performed. Proper protective gear for patient and members of the operating team was ensured and and expiratory O2 was noted to be 30% or less throughout the entirety of the case. Using a Dedo laryngoscopy, the upper aerodigestive tract was inspected and found to have no mucosal lesions noted. The most superior portion of the Zenkers diverticulum was identified. The Weerda laryngoscope was advanced transorally in order to expose the diverticulum and bring the cricopharyngeal muscle into view, under tension. The CO2 laser was brought into the field. This was used on 10 W continuous and superpulse modes. The mucosa was divided along the cricopharyngeal bar. Dissection was carried down through the cricopharyngeus muscle until the serosa was encountered. Care was taken not to violate the serosa. This completed the procedure. The patient was extubated and taken the PACU in stable condition. There were no complications. All counts were reported as correct. Dr. Corea present for entire procedure. Attestation: Note Completion: Attending AttestationI was present for the entire procedure I am a:Resident/Fellow Electronic Signatures: Jose Hoang (Resident)) (Signed 02-Jul-2022 10:55) Authored: Post-Operative Note, Chart Review, Note Completion Ralph Corea) (Signed 02-Jul-2022 15:17) Authored: Post-Operative Note, Chart Review, Note Completion Co-Signer: Post-Operative Note, Chart Review, Note Completion Last Updated: 02-Jul-2022 15:17 by Ralph Corea) [facility] 07-02-2022 Note Clinical Note - Phar bakari v2: Education: Document TopicMedication Education MedicationMeds to Beds: Patient declines Meds to Beds service at discharge. Sources used to confirm home medication list: Patient interview, Pharmacy Fill Hx ([facility] [place], [place]), RN JYOTI Note, OARRS (-) Additional notes: Carbidopa/levodopa is for restless legs and is taken PRN. Medication reconciliation complete Please reach out via [employer] for questions Kai Deal, MelizaD, PGY1 Hair Spinning Machine Operator [facility] Is This Intervention Medication Reconciliation Relatedyes Time Required5 - 10 minutes Additional NotesHome Medications Review Status for Reconciliation: Complete Med Status: Patient Currently Takes Medications Drug Name: doxazosin 8 mg oral tablet Instructions: 1 tab(s) oral once a day Drug Name: omeprazole 40 mg oral delayed release capsule Instructions: 1 tab(s) oral once a day Drug Name: carbidopa-levodopa 25 mg-100 mg oral tablet Instructions: 1 tab(s) orally once a day, As Needed for restless legs Drug Name: fluticasone nasal 50 mcg/inh nasal spray Instructions: 1 spray(s) in each nostril once a day, As Needed Drug Name: Albuterol (Eqv-Proventil HFA) 90 mcg/inh inhalation aerosol Instructions: 2 puff(s) inhaled every 6 hours, As Needed Allergy: Allergies Summary No Known Allergies Electronic Signatures: Kai Deal ([facility]) (Signed 02-Jul-2022 09:52) Authored: Education, Allergy Yulissa Sánchez ([facility]) (Signed 02-Jul-2022 11:30) Co-Signer: Education, Allergy Last Updated: 02-Jul-2022 11:30 by Yulissa Sánchez ([facility]) [facility] 07-02-2022 Note History of Present I llness: History Present Illness: Reason for surgery: Zenker's - cricopharyngeal myotomy HPI: Surgery: transoral Zenkers diverticulotomy with CO2 laser Name: Valentin Sheron #[id number] Surgeon: Nahomy Date of Surgery: 07/02/22 Dispo: Ext stay Preop H+P Date: 06/17 (<30 d) HPI: The patient is a 71 year old man referred by Dr. Alcala to ENT clinic for Zenker diverticulum. He reports about a 6 months ago he first started noting difficulties in swallow. This was mostly to solids with the feeling of food sticking in his throat. This is also associated with regurgitation of foods. He also reports reflux symptoms and chronic sore throat. He reports some laryngospasm associated with his regurgitation episodes. Denies any changes in breathing. PMH: Asthma, bladder spasm, RLS PSH: Hernia surgery in remote past, hemorrhoid surgery 2010 SHx: Denies tobacco - former quit in 2000, no significant alcohol intake FHx: None relevant to presenting complaint Outpt Rx: Reviewed - inhaler for asthma, doxazosin, carbidopa as needed All: NKDA F/U: 07/22/2022 at 11:45 AM at the [facility] location Allergies: Allergies: No Known Allergies: Home Medication Review: Home Medications Reviewed: yes Impression/Procedure: Impression and Planned Procedure: Zenker - transoral cricopharyngeal myotomy ERAS (Enhanced Recovery After Surgery): ERAS Patient: no Vital Signs: Temperature C: 36.5 degrees C Temperature F: 97.7 degrees F Heart Rate: 59 beats per minute Respiratory Rate: 16 breath per minute Blood Pressure Systolic: 138 mm/Hg Blood Pressure Diastolic: 65 mm/Hg Physical Exam by System: Respiratory/Thorax: Unlabored room air Cardiovascular: Well perfused Consent: COVID-19 Consent: COVID-19 Risk ConsentSurgeon has reviewed jorge risks related to the risk of sarah COVID-19 and if they contract COVID-19 what the risks are. Attestation: Note Completion: I am a: Resident/Fellow Attending AttestationI saw and evaluated the patient. I personally obtained the jorge and critical portions of the history and physical exam or was physically present for jorge and critical portions performed by the resident/fellow. I reviewed the resident/fellows documentation and discussed the patient with the resident/fellow. I agree with the resident/fellows medical decision making as documented in the note. I personally evaluated the patient [id number] Electronic Signatures: Jose Hoang (Resident)) (Signed 02-Jul-2022 05:11) Authored: History of Present Illness, Allergies, Home Medication Review, Impression/Procedure, ERAS, Physical Exam, Consent, Note Completion Ralph Corea) (Signed 02-Jul-2022 15:14) Authored: Physical Exam, Note Completion Co-Signer: History of Present Illness, Allergies, Home Medication Review, Impression/Procedure, ERAS, Physical Exam, Consent, Note Completion Last Updated: 02-Jul-2022 15:14 by Ralph Corea) [facility] 06-17-2022 History of Present illness Narrative HPI 06/17/22: The patient is a 71 year old man referred by Dr. Alcala to ENT clinic for Zenker diverticulum. He reports about a 6 months ago he first started noting difficulties in swallow. This was mostly to solids with the feeling of food sticking in his throat. This is also associated with regurgitation of foods. He also reports reflux symptoms and chronic sore throat. He reports some laryngospasm associated with his regurgitation episodes. Denies any changes in breathing.PMH: Asthma, bladder spasm, RLSPSH: Hernia surgery in remote past, hemorrhoid surgery 2011SHx: Denies tobacco - former quit in 2000, no significant alcohol intakeFHx: None relevant to presenting complaintOutpt Rx: Reviewed - inhaler for asthma, doxazosin, carbidopa as neededAll: NKDAROS: A full review of systems was obtained and all other systems are negative for complaint except as stated in historyExam reveals a healthy appearing man in no acute distress. Breathing is unlabored on room air. He appears well perfused. There are no obvious cranial neuropathies. Anterior rhinoscopy shows normal appearing structures. The patient is edentulous. The lips, tongue, and palate appear normal. Buccal mucosa appears normal. 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 We discussed multiple options moving forward including conservative management or surgical intervention. We did discuss the natural history and discussed the disease in detail. We discussed risks, benefits, and alternatives and he would like to proceed. We will plan to proceed with surgery in the form of an endoscopic cricopharyngeal myotomy and schedule follow up postoperatively.Interval History 07/22/22:Notes improvement with eating and swallowing since undergoing DL with transoral endoscopic repair of Zenker's diverticulum on 07/02/22. He has continued to eat a soft diet. He denies any pain. [facility]Zzrm[facility]rrrfs[facility] Work Phone: 12-15-2021 History of Present illness Narrative HPI: The patient is a 71 year old man referred by Dr. Alcala to ENT clinic for Zenker diverticulum. He reports about a 6 months ago he first started noting difficulties in swallow. This was mostly to solids with the feeling of food sticking in his throat. This is also associated with regurgitation of foods. He also reports reflux symptoms and chronic sore throat. He reports some laryngospasm associated with his regurgitation episodes. Denies any changes in breathing.PMH: Asthma, bladder spasm, RLSPSH: Hernia surgery in remote past, hemorrhoid surgery 2011SHx: Denies tobacco - former quit in 2000, no significant alcohol intakeFHx: None relevant to presenting complaintOutpt Rx: Reviewed - inhaler for asthma, doxazosin, carbidopa as neededAll: NKDAROS: A full review of systems was obtained and all other systems are negative for complaint except as stated in historyExam reveals a healthy appearing man in no acute distress. Breathing is unlabored on room air. He appears well perfused. There are no obvious cranial neuropathies. Anterior rhinoscopy shows normal appearing structures. The patient is edentulous. The lips, tongue, and palate appear normal. Buccal mucosa appears normal. 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 We discussed multiple options moving forward including conservative management or surgical intervention. We did discuss the natural history and discussed the disease in detail. We discussed risks, benefits, and alternatives and he would like to proceed. We will plan to proceed with surgery in the form of an endoscopic cricopharyngeal myotomy and schedule follow up postoperatively. KI[facility]Mstlfngjwntfsr-[facility] an Work Phone: [facility] Laceration of left thumb without foreign body with damage to nail, initial encounter- Primary Contact with powered saw as cause of accidental injury [facility] Laceration of left thumb without foreign body with damage to nail, subsequent encounter- Primary Contact with powered saw as cause of accidental injury documented in this encounter [facility] Chief Complaint NPVPOV Summary Purpose Family History No Family History Records FoundNo Family History Records FoundNo Family History Records Found Advance Directives No Advanced Directives Records FoundNo Advanced Directives Records FoundNo Advanced Directives Records Found Additional Source Comments (unrecognized sect ion and content) No Status Records FoundNo Status Records FoundNo Status Records Found INFORMATION SOURCE (unrecogn ized section and content) DATE CREATED AUTHOR AUTHOR'S ORGANIZ ATION 08/01/2022 [facility] DATE CREATED AUTHOR AUTHOR'S ORGANIZ ATION 09/24/2022 [facility] Source Comments (unrecognize d section and content) In the event this informatio n is protected by the Federal Confidentiality of Alcohol and Drug Abuse Patient Records regulations: The Federal rules restrict any use of the information to criminally investigate or prosecute any alcohol or drug abuse patient.[facility] the event this information is protected by the Federal Confidentiality of Alcohol and Drug Abuse Patient Records regulations: The Federal rules restrict any use of the information to criminally investigate or prosecute any alcohol or drug abuse patient.[facility] the event this information is protected by the Federal Confidentiality of Alcohol and Drug Abuse Patient Records regulations: The Federal rules restrict any use of the information to criminally investigate or prosecute any alcohol or drug abuse patient.[facility] the event this information is protected by the Federal Confidentiality of Alcohol and Drug Abuse Patient Records regulations: The Federal rules restrict any use of the information to criminally investigate or prosecute any alcohol or drug abuse patient.[facility] Reason for Visit (unrecogniz ed section and content) Reason Comments New laceration Pain laceration Reason Comments Established Patient Follow Up Wound Check Pain Reason Comments Established Patient Pain Care Teams (unrecognized sec tion and content) Hr Associate Relationship Specialty Start Date End Date Naomi Yoder, RETAIL SOLAR ADVISOR.[employer] SUPERVISOR [address] [place] [address] PCP - General Family Medicine 08/17/22 Hr Associate Relationship Specialty Start Date End Date Naomi Yoder APRN.[employer] SUPER[employer]OR [address] [place] [address] PCP - General Family Medicine 08/17/22 Hr Associate Relationship Specialty Start Date End Date Naomi Yoder APRN.[employer] SUPERVISOR [address] [place] [address] PCP - General Family Medicine 08/17/22 FOR RECORDS PERTAINING TO PATIENTS WHO ARE OR HAVE BEEN ENROLLED IN A CHEMICAL DEPENDENCY/SUBSTANCEABUSE PROGRAM, SOME INFORMATION MAY BE OMITTED. This clinical summary was aggregated from multiple sources. Caution should be exercised in using it in the provision of clinical care. This summary normalizes information from multiple sources, and as a consequence, information in this document may materially change the coding, format and clinical context of patient data. In addition, data may be omitted in some cases. CLINICAL DECISIONS SHOULD BE BASED ON THE PRIMARY CLINICAL RECORDS. [facility]. provides no warranty or guarantee of the accuracy or completeness of information in this document.
[2023-06-04 22:46] LABS: Absolute Lymphocyte Count 1.08 X10^3/uL (0.83-4.51); Absolute Neutrophil Count 2.7 X10^3/uL (2.0-7.7); Basophil# 0.07 X10^3/uL; Basophil% 1.6 % (0-1); Eosinophil# 0.15 X10^3/uL; Eosinophils% 3.4 % (0-5); Hematocrit 47.8 % (40-54); Hemoglobin 15.7 g/dL (13.0-16.5); Lymphocyte # 1.08 X10^3/ul (0.83-4.51); Lymphocyte % 24.3 % (19-41); Mean Corp Hgb Conc 32.8 g/dL (32-36); Mean Corpuscular Hgb 30.4 pg (27.0-32.0); Mean Corpuscular Volume 92.5 fL (80-94); Mean Platelet Vol. 10.6 fl (6.2-12.0); Monocyte# 0.45 X10^3/uL; Monocyte% 10.1 % (0-10); NRBC Flagged by Analyzer 0 % (0-5); Neutrophil # 2.67 X10^3/uL (2.7-7.7); Neutrophil % 60.1 % (47-70); Platelet Count 134 K/mm3 (150-450); RBC Distribution Width CV 12.3 % (11.6-14.6); RBC Distribution Width SD 42.3 fl (35.1-43.9); Red Blood Count 5.17 M/mm3 (4.6-6.2); White Blood Count 4.4 K/mm3 (4.4-11.0)
[2023-06-04 23:04] LABS: ALB/GLOB Ratio 1.3 RATIO (0.9-2.4); AST(SGOT) 20 U/L (15-37); Alanine Aminotransfer ALT/SGPT 20 U/L (16-61); Albumin, Serum 3.9 g/dL (3.2-5.0); Alkaline Phosphatase 55 U/L (45-117); Anion Gap 6 (5-15); BUN 12 mg/dL (7-18); Calcium,Total 8.9 mg/dL (8.5-10.1); Chloride 106 mmol/L (98-107); Cholesterol 237 mg/dL (200); Creatinine, Serum 1.09 mg/dL (0.70-1.30); EST Glomerular Filtration Rate 71 mL/min (>60); Est Glom Filt Rate - Afr Amer 86 mL/min (>60); Globulin 3.1 g/dL (2.2-4.2); Glucose 120 mg/dL (74-106); High Density Lipoprotein 73 mg/dL; PSA,Total - Annual Screen 2.33 ng/mL (0.00-4.00); Potassium 4.2 mmol/L (3.5-5.1); Sodium Level 139 mmol/L (136-145); Thyroid Stim Hormone (TSH) 1.72 uIU/mL (0.358-3.74); Triglycerides 158 mg/dL; Very Low Density Lipoprotein 32 mg/dL (5-40)
== END | disposition home or self-care (01) ==
PROVIDERS: PCP Nurse Practitioner; Visit Provider Nurse Practitioner
DX: E78.00 Pure hypercholesterolemia, unspecified (principal); N40.1 Benign prostatic hyperplasia with lower urinary tract symptoms; R35.0 Frequency of micturition; G25.81 Restless legs syndrome; Z12.5 Encounter for screening for malignant neoplasm of prostate; N32.89 Other specified disorders of bladder
CPT/HCPCS: 80053; 80061; 84153; 84443; 85025; G0103

== ENCOUNTER → 2024-01-23 | Outpatient (CLI) | payer MEDICARE, SELFPAY ==
[2024-01-23 21:39] LABS: Absolute Lymphocyte Count 1.32 X10^3/uL (0.83-4.51); Absolute Neutrophil Count 2.3 X10^3/uL (2.0-7.7); Basophil# 0.05 X10^3/uL; Basophil% 1.2 % (0-1); Eosinophil# 0.12 X10^3/uL; Eosinophils% 2.9 % (0-5); Hematocrit 43.7 % (40-54); Hemoglobin 14.4 g/dL (13.0-16.5); Lymphocyte # 1.32 X10^3/ul (0.83-4.51); Lymphocyte % 31.6 % (19-41); Mean Corpuscular Hgb 29.9 pg (27.0-32.0); Mean Corpuscular Volume 90.9 fL (80-94); Mean Platelet Vol. 10.7 fl (6.2-12.0); Monocyte# 0.42 X10^3/uL; NRBC Flagged by Analyzer 0 % (0-5); Neutrophil # 2.26 X10^3/uL (2.7-7.7); Neutrophil % 54.1 % (47-70); Platelet Count 131 K/mm3 (150-450); RBC Distribution Width CV 12.7 % (11.6-14.6); Red Blood Count 4.81 M/mm3 (4.6-6.2); White Blood Count 4.2 K/mm3 (4.4-11.0)
[2024-01-23 22:01] LABS: ALB/GLOB Ratio 1.2 RATIO (0.9-2.4); AST(SGOT) 22 U/L (15-37); Alanine Aminotransfer ALT/SGPT 21 U/L (16-61); Albumin, Serum 3.8 g/dL (3.2-5.0); Alkaline Phosphatase 49 U/L (45-117); Anion Gap 6 (5-15); BUN 21 mg/dL (7-18); BUN/Creat Ratio 17.5 RATIO (10-20); Calcium,Total 9.3 mg/dL (8.5-10.1); Chloride 106 mmol/L (98-107); EST Glomerular Filtration Rate 63 mL/min (>60); Est Glom Filt Rate - Afr Amer 77 mL/min (>60); Globulin 3.2 g/dL (2.2-4.2); Glucose 105 mg/dL (74-106); Sodium Level 138 mmol/L (136-145); Troponin-I HS 23 pg/mL (3.0-78.0)
== END | disposition home or self-care (01) ==
PROVIDERS: PCP Nurse Practitioner; Referring Provider Nurse Practitioner; Visit Provider Nurse Practitioner
DX: G45.9 Transient cerebral ischemic attack, unspecified (principal); G20.A1 Parkinson's disease without dyskinesia, without mention of fluctuations; R53.1 Weakness
CPT/HCPCS: 80053; 84484; 85025

== ENCOUNTER → 2024-02-03 | Outpatient (CLI) | payer MEDICARE, SELFPAY ==
--- NOTE | 2024-02-03 12:41 | CDU_ITS ---
Reason For Study: CAROTID ARTERY SYNDROME, TIA Rt. Velocities/BP Lt. Velocities/BP Prox CCA 55.4/8.1 cm/sec. Prox CCA 86.8/13.1 cm/sec. Mid CCA 85.3/13.8 cm/sec. Mid CCA 108.9/24.1 cm/sec. Dist CCA 80.9/18.2 cm/sec. Dist CCA 101.5/27.8 cm/sec. Prox ICA 136.3/32.1 cm/sec. Prox ICA 157.8/34.9 cm/sec. Mid ICA 88.3/22.0 cm/sec. Mid ICA 109.4/29.0 cm/sec. Dist ICA 68.7/17.1 cm/sec. Dist ICA 91.1/32.7 cm/sec. Rt. ICA/CCA = 136.3/85.3=1.6. Lt. ICA/CCA = 157.8/108.9=1.5. Prox ECA 128.9/8.4 cm/sec. Prox ECA 160.0/6.4 cm/sec. Rt. Vert. 35.7/6.0 cm/sec. Lt. Vert. 40.6/12.0 cm/sec. Right Extracranial There is homogeneous, smooth atherosclerotic plaque noted in the right common carotid artery. There is heterogeneous, irregular atherosclerotic plaque noted in the right internal carotid artery. The atherosclerotic plaque causes acoustic shadowing. There is heterogeneous, smooth atherosclerotic plaque noted in the right external carotid artery. Antegrade flow is noted in the right vertebral artery. There is heterogeneous, irregular atherosclerotic plaque noted in the right bulb. Left Extracranial There is heterogeneous, irregular atherosclerotic plaque noted in the left common carotid artery. There is heterogeneous, irregular atherosclerotic plaque noted in the left internal carotid artery. There is heterogeneous, irregular atherosclerotic plaque noted in the left external carotid artery. Antegrade flow is noted in the left vertebral artery. There is heterogeneous, irregular atherosclerotic plaque noted in the left bulb. Procedure Carotid Duplex [id number]. This is a Carotid Duplex examination using B-mode, color flow and specral Doppler. Exam performed in department. VL/Carotid Duplex Ultrasound Interpretation Summary Moderate (50-69%) stenosis right extracranial internal carotid. Moderate (50-69%) stenosis left extracranial internal carotid. Limited by calci fic shadowing, alternative imaging modality may be beneficial. Patent and antegrade vertebrals bilaterally. Ordering Physician: Madelyn Chávez Referring Physician: Madelyn Chávez Performed By: Pebbles Lechuga, HUANG, RVT
== END | disposition home or self-care (01) ==
PROVIDERS: PCP Nurse Practitioner; Referring Provider Nurse Practitioner; Visit Provider Nurse Practitioner
DX: G45.1 Carotid artery syndrome (hemispheric) (principal); R53.1 Weakness
CPT/HCPCS: 93880

== ENCOUNTER → 2024-02-17 | Outpatient (CLI) | payer MEDICARE, SELFPAY ==
--- NOTE | 2024-02-17 15:21 | MRI_ITS ---
EXAM: MR HEAD WITHOUT AND WITH INTRAVENOUS CONTRAST CLINICAL INDICATION: TIA TECHNIQUE: Multiplanar and multisequence MR images of the brain were obtained without and with intravenous contrast. CONTRAST: IV 15ML CLARISCAN COMPARISON: No relevant prior studies available. FINDINGS: BRAIN AND EXTRA-AXIAL SPACES: Increased T2 signal intensity within the cerebral white matter suggestive of chronic microvascular change. No abnormal contrast enhancement. No intra- or extra-axial hemorrhage. No evidence of acute infarct. No intracranial mass or mass effect. Normal preservation of the freeman/white matter interface. Posterior fossa structures are unremarkable. Ventricles are appropriate for age. No hydrocephalus. Basal cisterns are patent. SELLA: Normal. Normal sella turcica, pituitary gland, infundibular stalk, optic chiasm and hypothalamus. AUDITORY SYSTEM: Normal. The internal auditory canals are patent. BONES/JOINTS: Intact calvarium. SINUSES: Mucosal thickening of the paranasal sinuses. MASTOID AIR CELLS: Unremarkable as visualized. Clear. ORBITS: Unremarkable as visualized. Both globes, extraocular muscles, optic nerves and retrobulbar fat appear unremarkable. VASCULATURE: Unremarkable as visualized. Normal flow voids in the major intracranial circulation. MRI/Brain W/WO Contrast IMPRESSION: 1. No acute intracranial abnormality. 2. Senescent changes. Electronically Signed: Angel Weller MD at 16:23 EDT ,
--- NOTE | 2024-02-17 15:46 | RAD_ITS ---
STUDY: X-RAY - ORBITS REASON FOR EXAM: Male, 73 years old. HX METAL- PRE MRI TECHNIQUE: 2 view(s) of the orbits were obtained. COMPARISON: None. FINDINGS: Normal bilateral orbits without a metallic orbital foreign body. Normal visualized facial bones. Normal paranasal sinuses. The soft tissue structures are unremarkable. RAD/Orbits for Foreign Body IMPRESSION: No demonstrated metallic orbital foreign body. The patient is cleared for an MRI examination. Electronically Signed: Jose Manuel Michael MD at 16:25 EDT ,
== END | disposition home or self-care (01) ==
LOC: MRI 15:18
PROVIDERS: PCP Nurse Practitioner; Referring Provider Nurse Practitioner; Visit Provider Nurse Practitioner
DX: R53.1 Weakness (principal); G45.9 Transient cerebral ischemic attack, unspecified
CPT/HCPCS: 70030; 70553; A9575

== ENCOUNTER → 2024-03-18 | Outpatient (CLI) | payer MEDICARE, SELFPAY ==
--- NOTE | 2024-03-18 07:19 | CT_ITS ---
STUDY: CTA HEAD AND NECK WITH CONTRAST REASON FOR EXAM: Male, 73 years old. Left ICA stenosis, hx TIA. Right leg weakness. RADIATION DOSAGE (If Supplied By Facility): CTDIvol = ( 30.86 ) mGy, DLP = ( 1603.92 ) mGycm TECHNIQUE: CT angiography was performed with a multi-detector CT scanner. Data acquisition was obtained from the skull base through the vertex following intravenous administration of IV 100mL Isovue-370. MIP images were reconstructed from the axial data set. Post-processing of the angiographic images was performed, with multiplanar reformation and 3D reconstruction. Individualized dose optimization techniques were used for this CT. COMPARISON: No relevant priors. FINDINGS: Normal bilateral petrous carotid arteries. There is calcified plaque formation of the right cavernous carotid artery, with a mild stenosis (less than 50%). There is calcified plaque formation of the left cavernous carotid artery, with a mild stenosis (less than 50%). Normal right A1 segments of the anterior cerebral artery. Normal left A1 segments of the anterior cerebral artery. Normal intact anterior communicating artery (ACOM). Normal bilateral A2 segments of the anterior cerebral arteries. Normal right M1 and M2 segments of the middle cerebral arteries, with a normal M1 bifurcation. Normal left M1 and M2 segments of the middle cerebral arteries, with a normal M1 bifurcation. Normal right posterior communicating artery (PCOM). Normal left posterior communicating artery (PCOM). Normal bilateral vertebral arteries. Normal basilar artery with a normal basilar bifurcation. The visualized bilateral superior cerebellar (SCA) arteries are normal. Normal bilateral P1, P2 and visualized P3 segments of the posterior cerebral arteries. There is no demonstrated aneurysm of the enterprise of Singh. Mild degree of cerebral atrophy. Partial opacification of the ethmoid sinuses bilaterally. Mucosal thickening at the bases of both maxillary sinuses. AORTIC ARCH: Normal visualized aortic arch. Normal origins of the brachiocephalic, left common carotid, and left subclavian arteries. Atherosclerotic plaque formation at the origin of the left subclavian artery. RIGHT CAROTID ARTERIES: Normal right common carotid artery (CCA). Normal right common carotid bulb. There is mild atherosclerotic plaque formation of the origin of the right internal carotid artery with less than 50% cross sectional diameter stenosis. Calcific plaque seen in the distal cervical aspect of the right internal carotid artery just proximal to the petrous portion causing 50-60% stenosis. Normal origin of the right external carotid artery (ECA). LEFT CAROTID ARTERIES: Normal left common carotid artery (CCA). Normal left common carotid bulb. There is extensive atherosclerotic plaque formation of the origin of the left internal carotid artery with an estimated stenosis of greater than 70%. Normal visualized cervical portion of the left internal carotid artery. Normal origin of the left external carotid artery (ECA). VERTEBRAL ARTERIES: There is enhancement within the bilateral vertebral arteries with a small right vertebral artery, and a dominant left vertebral artery. CT/CTA Head AND Neck W/ Contrast IMPRESSION: Atherosclerotic plaque formation at the origin of the right internal carotid artery causing less than 50% stenosis. Atherosclerotic plaque formation in the distal cervical aspect of the right internal carotid artery just proximal to the petrous portion causing between 50 and 60% stenosis. Atherosclerotic calcific plaques at the origin of the left internal carotid artery causing greater than 70% stenosis. Electronically Signed: Derrek Curry MD at 9:14 EDT ,
[2024-03-18 07:52] LABS: CREATININE FINGERSTICK 1.1 mg/dL (0.70-1.30); EGFR FINGERSTICK > 60.0000 mL/min (>60)
== END | disposition home or self-care (01) ==
PROVIDERS: PCP Nurse Practitioner; Referring Provider Physician Assistant; Visit Provider Physician Assistant
DX: I65.22 Occlusion and stenosis of left carotid artery (principal); Z86.73 Personal history of transient ischemic attack (TIA), and cerebral infarction without residual deficits
CPT/HCPCS: 70496; 70498; Q9967

== ENCOUNTER → 2024-08-06 | Outpatient (CLI) | payer MEDICARE, SELFPAY ==
[2024-08-06 22:09] LABS: Absolute Lymphocyte Count 1.32 X10^3/uL (0.83-4.51); Absolute Neutrophil Count 2.1 X10^3/uL (2.0-7.7); Basophil# 0.05 X10^3/uL; Basophil% 1.2 % (0-1); Eosinophil# 0.17 X10^3/uL; Eosinophils% 4.1 % (0-5); Hematocrit 46.5 % (40-54); Hemoglobin 15.9 g/dL (13.0-16.5); Lymphocyte # 1.32 X10^3/ul (0.83-4.51); Mean Corp Hgb Conc 34.2 g/dL (32-36); Mean Corpuscular Hgb 30.6 pg (27.0-32.0); Mean Corpuscular Volume 89.6 fL (80-94); Mean Platelet Vol. 10.3 fl (6.2-12.0); Monocyte# 0.49 X10^3/uL; Monocyte% 11.9 % (0-10); NRBC Flagged by Analyzer 0 % (0-5); Neutrophil # 2.09 X10^3/uL (2.7-7.7); Neutrophil % 50.6 % (47-70); Platelet Count 128 K/mm3 (150-450); RBC Distribution Width CV 12.8 % (11.6-14.6); RBC Distribution Width SD 41.6 fl (35.1-43.9); Red Blood Count 5.19 M/mm3 (4.6-6.2); White Blood Count 4.1 K/mm3 (4.4-11.0)
[2024-08-07 00:40] LABS: ALB/GLOB Ratio 1.7 RATIO (0.9-2.4); AST(SGOT) 23 U/L (<=37); Alanine Aminotransfer ALT/SGPT 13 U/L (<=46); Albumin, Serum 4.3 g/dL (3.4-4.8); Alkaline Phosphatase 58 U/L (40-129); Anion Gap 9 (5-15); BUN 12 mg/dL (4-19); Carbon Dioxide 27.2 mmol/L (22.0-29.0); Chloride 104 mmol/L (96-108); Cholesterol 218 mg/dL (<=200); EST Glomerular Filtration Rate 71 (>60); Globulin 2.5 g/dL (2.2-4.2); Glucose 95 mg/dL (70-99); High Density Lipoprotein 60 mg/dL; Low Density Lipoprotein Calc. 123 mg/dL; PSA,Total - Annual Screen 1.99 ng/mL (0.02-4.00); Potassium 4.2 mmol/L (3.3-5.1); Protein, Total 6.8 g/dL (5.9-8.4); Sodium Level 140 mmol/L (133-145); Total Bilirubin 0.47 mg/dL (0.00-1.30); Triglycerides 178 mg/dL; Very Low Density Lipoprotein 36 mg/dL (5-40); cholesterol:hdl ratio screen 3.66
== END | disposition home or self-care (01) ==
PROVIDERS: PCP Nurse Practitioner; Referring Provider Nurse Practitioner; Visit Provider Nurse Practitioner
DX: M25.511 Pain in right shoulder (principal); G20.A1 Parkinson's disease without dyskinesia, without mention of fluctuations; M54.6 Pain in thoracic spine; N40.1 Benign prostatic hyperplasia with lower urinary tract symptoms; R35.0 Frequency of micturition; E78.00 Pure hypercholesterolemia, unspecified; G25.81 Restless legs syndrome; Z12.5 Encounter for screening for malignant neoplasm of prostate
CPT/HCPCS: 80053; 80061; 84153; 85025; G0103

== ENCOUNTER → 2024-08-09 | Outpatient (CLI) | payer MEDICARE, SELFPAY ==
--- NOTE | 2024-08-09 08:49 | RAD_ITS ---
EXAM: XR Thoracic Spine, 3 Views CLINICAL INDICATION: TECHNIQUE: Frontal, lateral and swimmer's views of the thoracic spine. COMPARISON: No relevant prior studies available. FINDINGS: VERTEBRAE: Unremarkable. No acute fracture. Normal alignment. DISC SPACES: No acute findings. No significant narrowing. SOFT TISSUES: Unremarkable. RAD/Thoracic Spine 3 Views IMPRESSION: No acute fracture. [facility]
--- NOTE | 2024-08-09 08:49 | RAD_ITS ---
EXAM: XR Right Shoulder Complete, 2 or More Views CLINICAL INDICATION: TECHNIQUE: Two or more views of the right shoulder. COMPARISON: No relevant prior studies available. FINDINGS: BONES/JOINTS: Unremarkable. No acute fracture. No dislocation. SOFT TISSUES: Unremarkable. RAD/Shoulder min 2 Views IMPRESSION: No acute fracture. Reading [facility]
== END | disposition home or self-care (01) ==
LOC: RAD 08:46
PROVIDERS: PCP Nurse Practitioner; Referring Provider Nurse Practitioner; Visit Provider Nurse Practitioner
DX: M25.511 Pain in right shoulder (principal); M54.6 Pain in thoracic spine
CPT/HCPCS: 72072; 73030

== ENCOUNTER → 2025-03-18 | Outpatient (CLI) | payer MEDICARE, SELFPAY ==
--- NOTE | 2025-03-18 08:48 | CDU_ITS ---
Reason For Study Reason For Study: Carotid stenosis Rt. Velocities/BP Lt. Velocities/BP Prox CCA 55.1/9.7 cm/sec. Prox CCA 86.3/20 cm/sec. Mid CCA 78.7/13.5 cm/sec. Mid CCA 88.8/24.9 cm/sec. Dist CCA 70.2/15.4 cm/sec. Dist CCA 72.9/22.5 cm/sec. Prox ICA 154/38.9 cm/sec. Prox ICA 87.6/20 cm/sec. Mid ICA 109.7/24.9 cm/sec. Mid ICA 85.1/28.6 cm/sec. Dist ICA 77.7/24.9 cm/sec. Dist ICA 75.3/28.6 cm/sec. Rt. ICA/CCA = 1.96. Lt. ICA/CCA = 0.99. Prox ECA 115.6/9.7 cm/sec. Prox ECA 136.8/7.2 cm/sec. Rt. Vert. 22/2.2 cm/sec. Lt. Vert. 43.7/12.6 cm/sec. Right Extracranial There is heterogeneous, irregular atherosclerotic plaque noted in the right common carotid artery. There is heterogeneous, irregular atherosclerotic plaque noted in the right internal carotid artery. There is heterogeneous, irregular atherosclerotic plaque noted in the right external carotid artery. Antegrade flow is noted in the right vertebral artery. Left Extracranial There is homogeneous, smooth atherosclerotic plaque noted in the left common carotid artery. There is heterogeneous, irregular atherosclerotic plaque noted in the left internal carotid artery. There is heterogeneous, irregular atherosclerotic plaque noted in the left external carotid artery. Antegrade flow is noted in the left vertebral artery. Procedure Carotid Duplex [id number]. This is a Carotid Duplex examination using B-mode, color flow and specral Doppler. Exam performed in department. VL/Carotid Duplex Ultrasound Interpretation Summary Moderate (50-69%) stenosis right extracranial internal carotid. Mild (<50%) stenosis left extracranial internal carotid. Patent and antegrade vertebrals bilaterally. Ordering Physician: Ledy Madden Referring Physician: Madelyn Chávez Performed By: Carol Salas RVT
== END | disposition home or self-care (01) ==
PROVIDERS: PCP Nurse Practitioner; Referring Provider Physician Assistant; Visit Provider Physician Assistant
DX: I65.22 Occlusion and stenosis of left carotid artery (principal)
CPT/HCPCS: 93880